=== PATIENT | female | born 1950 | race Caucasian/White ===

== ENCOUNTER 2018-12-15 12:13 | Emergency (ER) | payer OTHER, BC ==
--- NOTE | 2018-12-15 12:25 | EDM.PDOC ---
ED HPI GENERAL MEDICAL PROBLEM - General Chief Complaint: Trauma Stated Complaint: RAN OVER BY A HORSE Time Seen by Provider: 12/15/18 12:20 Source of Information: Reports: Patient History Limitations: Reports: No Limitations - History of Present Illness INITIAL COMMENTS - FREE TEXT/NARRATIVE: 68-year-old female presents to the ED at the request of her primary care provider Jesica Lomas from the [facility]. Patient states she was in a paddock with a relatively new horse [place] when the horse suddenly turned and discharged her knocking her down and head butted her in the mid forehead. This resulted in a 2.5 cm laceration to the mid forehead and a 1.5 cm laceration to the upper right eyelid. These wounds have been repaired and [place] with sutures in the midline of the forehead and skin glue to the right upper eyelid. Patient has a mild headache at this point time. Denies any cervical neck pain. No significant nausea. No vomiting. No change in visual acuity. She has no pain in her elbows ribs back or hips. He states she was dazed for sure. Time but never lost consciousness. She has some numbness in the distribution of the occipital frontal nerve on the right side of her scalp. She is not on any blood thinners. Onset: Today Onset Date: 12/15/18 Onset Time: 10:30 Duration: Hour(s): Location: Reports: Head, Face Quality: Reports: Ache, Other (Numbness in the right) Severity: Moderate Improves with: Reports: None Worsens with: Reports: None Context: Reports: Trauma (Suffered blunt trauma after being butted in the head by a horse.). Denies: Activity, Exercise, Lifting, Sick Contact Associated Symptoms: Reports: Headaches. 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 (see below) Right Headache Pain Score (Numeric/FACES): 3 - Related Data Allergies Allergy/AdvReac Type Severity Reaction Status Date / Time No Known Allergies Allergy Verified 12/15/18 12:23 Home Meds: Home Meds Acetaminophen/HYDROcodone [[place] 325-5 MG] 2 tab PO DAILY PRN 12/15/18 [History] Carisoprodol 350 - 700 mg PO BEDTIME 06/19/19 [History] Propranolol [Inderal] 40 mg PO BID 12/15/18 [History] Past Medical History Musculoskeletal History: Reports: Osteoarthritis (mild knees and hips and neck.) Psychiatric History: Reports: Other (See Below) (chronic insomnia) Social & Family History - Living Situation & Occupation Living situation: Reports: Occupation: Employed Review of Systems - Review of Systems Review Of Systems: See Below Constitutional: Denies: Chills, Diaphoresis, Fever, Weakness, Other Eyes: Reports: No Symptoms Ears: Reports: No Symptoms Nose: Reports: No Symptoms Mouth/Throat: Reports: No Symptoms Respiratory: Reports: No Symptoms Cardiovascular: Reports: No Symptoms GI/Abdominal: Reports: No Symptoms Genitourinary: Reports: No Symptoms Musculoskeletal: Reports: Other (Low back pain knees and hips at times. Neck at times) Skin: Reports: Bruising Neurological: Reports: No Symptoms (Bruises easily.) Psychiatric: Reports: No Symptoms ED EXAM, GENERAL - Physical Exam Exam: See Below Exam Limited By: No Limitations General Appearance: Alert, WD/WN, No Apparent Distress, Other (Has sutures in the midline of her forehead in a 3 cm laceration. Skin glue to her right upper eyelid for a 1.5 cm laceration.) Eye Exam: Bilateral Eye: Normal Inspection, PERRL Ears: Normal TMs Throat/Mouth: Normal Inspection, Normal Lips, Normal Oropharynx, Normal Voice, Other Head: Facial Tenderness (Swelling minimal to the mid forehead where she has 6 sutures placed to close the midline facial laceration. Contusion to the right upper eyelid with minimal ecchymoses. This wound was), Other (No tongue or dental injuries.) Neck: Normal Inspection ( skin glue.), Supple, Non-Tender, Full Range of Motion , Other. No: Lymphadenopathy (L), Lymphadenopathy (R) Respiratory/Chest: No Respiratory Distress (Full unopposed range of motion of cervical spine.), Lungs Clear, Normal Breath Sounds, No Accessory Muscle Use, Chest Non-Tender, Other (No pain on palpation of the ribs and sternum.) Cardiovascular: Normal Peripheral Pulses, Regular Rate, Rhythm, No Edema, No Gallop, No Murmur, No Rub Peripheral Pulses: 3+: Posterior Tibial (L), Posterior Tibial (R), Dorsalis Pedis (L), Dorsalis Pedis (R) GI/Abdominal: Normal Bowel Sounds, Soft, Non-Tender, No Organomegaly, No Abnormal Bruit, No Mass, Pelvis Stable Back Exam: Normal Inspection, Full Range of Motion. No: CVA Tenderness (L), CVA Tenderness (R) Extremities: Normal Inspection, Normal Range of Motion, Non-Tender, Other ( [place] right mid forearm but she states this is a couple days old.) Neurological: Alert, Oriented, CN II-XII Intact, Normal Cognition, Normal Gait Psychiatric: Normal Affect, Normal Mood Skin Exam: Warm, Dry, Intact, Normal Color, No Rash Course - Vital Signs Last Recorded V/S: Last Vital Signs Temp 36.7 C 12/15/18 12:50 Pulse 60 12/15/18 12:50 Resp 16 12/15/18 12:50 BP 115/78 12/15/18 12:50 Pulse Ox 100 12/15/18 12:50 - Radiology Interpretation Free Text/Narrative:: 68-year-old female presents to the ED after being head butted by a horse out in [place]. States she was knocked to the ground and the horse butted his head against her forehead. This resulted in a 3 cm laceration midline of the floor head which was sutured by Jesica Lomas in [place]. Suffered a small laceration of the right upper eyelid that was skin glued. At present she has a very mild headache. She has some numbness in the distribution of the right occipital frontal nerve. Intermittent mild nausea. No vomiting. No visual acuity changes. No evidence of neck injury. No other body part injuries identified. CT head to be done. - Re-Assessments/Exams Free Text/Narrative Re-Assessment/Exam: 12/15/18 12:49 CT head reveals no intracranial bleeding or midline shift or mass effect. No skull fractures identified. Patient will be discharged to home. There is no clinical evidence that she has suffered a concussion. Soft tissue injuries only. Departure - Departure Time of Disposition: 12:50 Disposition: Home, Self-Care 01 Condition: Fair Clinical Impression: Closed head injury without concussion Qualifiers: Encounter type: initial encounter Qualified Code(s): S09.90XA - Unspecified injury of head, initial encounter Laceration of face Qualifiers: Encounter type: initial encounter Qualified Code(s): S01.81XA - Laceration without foreign body of other part of head, initial encounter - Discharge Information *PRESCRIPTION DRUG MONITORING PROGRAM REVIEWED*: Not Applicable *COPY OF PRESCRIPTION DRUG MONITORING REPORT IN PATIENT NAWAF: Not Applicable Instructions: Laceration Care, Adult Referrals: Tita Salomon NP [Primary Care Provider] - Forms: ED Department Discharge Additional Instructions: Evaluation the emergency room today in regards to injuries sustained from a horse butt to your midline of forehead. This resulted in a 3 cm laceration midline of the forehead which was sutured in [place] and a linear laceration of the right upper eyelid which was skin glued. Contusion to the scalp identified. You have some numbness the distribution of the right occipital frontal nerve which will go away over the next week to [address] of the head reveals no intracranial bleeding or skull fracture. Follow-up with primary care provider in [place] as planned to have your sutures removed. Activity as tolerated.
--- NOTE | 2018-12-15 13:12 | CT ---
Head CT Technique: Multiple axial sections through the brain were obtained. Intravenous contrast was not utilized. Comparison: Prior head CT study of 12/09/16. Findings: Ventricles along with basal cisterns and sulci over the convexities are mildly prominent. Incidental calcification along the interhemispheric falx is seen which is stable. No abnormal parenchymal densities are seen. No evidence of intracranial hemorrhage. No midline shift or mass effect is seen. Minimal basal ganglia calcification is noted. Bone window settings were reviewed which show mild mucosal thickening within the left frontal sinus. Other visualized sinuses are clear. No acute calvarial abnormality is seen. Impression: 1. Mucosal thickening within the left frontal sinus. This is an interval change from prior study. No air-fluid levels are seen within the sinuses to indicate acute sinusitis. 2. Mild generalized atrophy and basal ganglia calcification which is felt to be incidental. 3. No acute intracranial abnormality is identified. Diagnostic code #2
== END 2018-12-15 12:58 | disposition home or self-care (01) ==
LOC: JD.ED 12:13
DX: S01.81XA Laceration without foreign body of other part of head, initial encounter (principal); S01.111A Laceration without foreign body of right eyelid and periocular area, initial encounter; Z79.899 Other long term (current) drug therapy; W55.12XA Struck by horse, initial encounter; W19.XXXA Unspecified fall, initial encounter
CPT/HCPCS: 70450; 70450-26; 99284-25